=== PATIENT | male | born 1960 | race Caucasian/White ===

== ENCOUNTER 2017-07-29 12:07 | Emergency (ER) | payer MEDICARE, OTHER ==
[~2017-07-29] VITALS: Ht 170.2 cm; Wt 132.0 kg
[~2017-07-29 12:07] MED LIST: ALPRAZOLAM0.5 MG PO; AMBIEN10 MG PO; AMLODIPINE BESY10 MG PO; B COMPLEX1 EACH PO; CLONIDINE HCL0.1 MG PO; CLONIDINE HCL0.2 MG PO; CYMBALTA60 MG PO; FISH OIL500 MG; FLONASE2 SPRAY NS; GABAPENTIN600 MG PO; GLUCOPHAGE1000 MG PO; HUMALOG100 UNIT/1 SUB-Q; HYDROCODON-ACE1 EAC8 PO; HYZAAR 100-251 EACH PO; IRON325 M1 PO; LABETALOL HCL100 MG PO; LANTUS100 UNIT/1 SUB-Q; LANTUS100 UNITS/ SUB-Q; LEVOTHYROXINE0.5 GM MISC; LIPITOR80 MG GT; MOBIC7.5 MG PO; NAPROXEN375 MG PO; NICAZEL TABLET1 EACH PO; NITRO-TIME9 MG PO; NITROSTAT0.4 MG SL; NORCO 5-325 TA1 EACH PO; NOVOLIN R100 UNIT/1 INJ; NOVOLOG FL100 UNIT/1; PROVENTIL HFA6.7 GM INH; RANITIDINE HCL150 MG PO; ST. JOSEPH ASPI81 M1 PO; VITAMIN; VITAMIN B125000 MCG PO; VITAMIN D1000 UNI1 PO
[2017-07-29] MEDS ORDERED: CLONIDINE HCL0.2 MG PO (12:22)
== END 2017-07-29 13:00 | disposition home or self-care (01) ==
LOC: ED 12:07
DX: S63.502A Unspecified sprain of left wrist, initial encounter (principal); I11.0 Hypertensive heart disease with heart failure; I50.9 Heart failure, unspecified; E11.40 Type 2 diabetes mellitus with diabetic neuropathy, unspecified; Z79.82 Long term (current) use of aspirin; Z79.899 Other long term (current) drug therapy; Z98.890 Other specified postprocedural states; Z79.4 Long term (current) use of insulin; Z88.8 Allergy status to other drugs, medicaments and biological substances; W18.30XA Fall on same level, unspecified, initial encounter
CPT/HCPCS: 73110; 99283

== ENCOUNTER 2017-11-14 05:55 | Inpatient (IN) | payer MEDICARE, OTHER ==
[~2017-11-14] VITALS: Ht 170.2 cm; Wt 134.3 kg
--- OUTSIDE RECORDS SUMMARY | ~2017-11-14 | XMS | Clinical Summary ---
Demographics + + + | Address | [address] | | | [place] [address] | + + + | Home Phone | | + + + | Preferred Language | Unknown | + + + | Marital Status | | + + + | Bahai Affiliation | Unknown | + + + | Race | White | + + + | Ethnic Group | Not or | + + + Author + + + | Author | [facility] | + + + | Organization | [facility] | + + + | Address | Unknown | + + + | Phone | Unavailable | + + + Support + + +---------+ + | Name | Relationship | Address | Phone | + + +---------+ + | IRA PATTERSON | ECON | Unknown | | + + +---------+ + Care Team Providers + +------+ + | Care Peanut Blancher Name | Role | Phone | + +------+ + | Aditya Avila MD | PP | | + +------+ + Source Comments STACY is fully live on both [facility] Amb[facility] and [facility] InPatient.[facility] Allergies Not on File Current Medications Not on file Active Problems Not on file Social History + +-------+ +--------+------+ | Tobacco Use | Types | Packs/Day | Years | Date | | | | | Used | | + +-------+ +--------+------+ | Never Assessed | | | | | + +-------+ +--------+------+ + + + | Sex Assigned at | Date Recorded | | | | + + + | Not on file | | + + + Plan of Treatment + + + + + | Health Maintenance | Due Date | Last Done | Comments | + + + + + | INFLUENZA VACCINE | | | | | (FLU SHOT) | 7 | | | + + + + + Results Not on filefrom Last 3 Months"
--- OUTSIDE RECORDS SUMMARY | ~2017-11-14 | XMS | Clinical Summary ---
Demographics + + + | Address | [address] | | | [place] [address] | + + + | Home Phone | | + + + | Preferred Language | Unknown | + + + | Marital Status | | + + + | Sabianism Affiliation | Unknown | + + + [...] Team Providers + +------+ + | Care Fiberglass Container Winding Operator Name | Role | Phone | + +------+ + | Aditya Avila MD | PP | | + +------+ + Source Comments STACY is fully live on both [facility] Ambulatory and [facility] InPatient.[facility] Allergies Not on File Current Medications Not [...]
[~2017-11-14 05:55] MED LIST changes: +FARXIGA10 MG PO; +FISH OIL 1,0001 EAC6 PO; -FISH OIL500 MG; +FLONASE ALLERG9.9 ML NAS; -FLONASE2 SPRAY NS; +HUMALOG100 UNITS/ SUB-Q; +LEVOTHYROXINE25 MCG PO; -LIPITOR80 MG GT; +LIPITOR80 MG PO; +LISINOPRIL20 MG PO; +METOPROLOL SUC100 MG PO; +MULTI VITAMIN1 EACH PO; +NITROSTAT0.3 MG SL; +RANITIDINE HCL150 M1 PO; +TRULICITY0.75 MG/0. SUB-Q; +VITAMIN C1000 MG PO
--- NOTE | 2017-11-14 10:38 | OR ---
[facility] [address] [place], [place] [address] Signed DATE OF OPERATION: 11/14/2017 SURGEON: Princess Espitia MD PREOPERATIVE DIAGNOSIS: Degenerative joint disease, left knee. POSTOPERATIVE DIAGNOSIS: Degenerative joint disease, left knee. PROCEDURE PERFORMED: Left total knee arthroplasty with computer navigation. CORPORATE LEGAL ASSISTANT: Diane Man PA-C. Diane was present in critical positioning, retraction, and wound closure. BLOOD LOSS: Minimal. TOURNIQUET TIME: 56 minutes. ANESTHESIA: Spinal. IMPLANTS: Flaca size 4 Triathlon, 11 mm insert, and 32 mm patella. BRIEF HISTORY: Don is a 57-year-old male with progressive worsening of arthritis. We treated him over the years with injections, anti-inflammatories, bracing, and arthroscopy without substantial relief. Risks and benefits of operative treatment were discussed with him and he elected to proceed. DESCRIPTION OF PROCEDURE: Once consent was obtained, he was taken operating room. After adequate anesthesia, was placed on operating table. All downside pressure points well padded. The left leg was placed in well-padded proximal thigh tourniquet placed on hip bump. Leg was then Electronically Signed By: PRINCESS ESPITIA MD 11/14/17 1038 PATIENT NAME: DON PATTERSON OPERATIVE REPORT DATE OF : 58 REPORT #: [id number] PHYSICIAN: PRINCESS ESPITIA MD PCP: BONNIE HANNA REPORT IS CONFIDENTIAL AND NOT TO BE RELEASED WITHOUT AUTHORIZATION [facility] [address] [facility] [place], [place] [address] Signed prepped and draped in a standard sterile fashion. Leg was exsanguinated using Esmarch bandage. Tourniquet inflated to 250 mmHg. Standard anterior approach through curved incision was taken through skin subcutaneous tissue. Median parapatellar arthrotomy was performed. The infrapatellar fat pad was excised and the MCL was elevated to sleeve around the posteromedial corner. The anterior horns of menisci were transected and ACL was transected. PCL was found to be intact. The knee was flexed and the navigation guide was pinned to the distal femur and the femur was registered with the computer. The distal femoral cut was then made in neutral alignment. The distal femur was then sized to a 4 and the four AP cutting block was pinned in line with epicondylar axis. The anterior, posterior, chamfer cuts were made. The osteophytes were removed. The attention was then turned to the proximal tibia. The navigation guide was pinned to the proximal tibia and the tibia was registered with the computer. The cutting block was then pinned in neutral alignment and the cut was made with care taken to protect the patellar tendon and MCL. The bone was removed as were any meniscal remnants. Posterior release performed off the femur. Posterior osteophytes removed. The flexion-extension gaps were sized and be symmetric at 11 mm. The trials were then positioned and the knee was taken through range of motion and found to be stable from 0 to 130 degrees of flexion. The patella was cut, sized, and drilled for a 32 mm patella. The tibia was finished using the keel punch in the femur since using the drill holes for the pegs. The trials were removed. The bone was pulse lavaged, packed with dry Ray-Yumiko. The cement was mixed and reached proper consistency, displaced all implants on bone surfaces. Tibia was impacted in position first followed by the femur and all excess cement was removed. The polyethylene was snapped into position. The knee was extended and nicely loaded. The patella was clamped and any remaining cement was removed. The cement was allowed to harden. Once it hardened sufficiently, the knee was flexed. The was removed using osteotomes. The knee was pulse lavaged at intervals throughout the procedure. A total of 3 L antibiotic irrigation was used. The periarticular soft tissues were injected with ropivacaine and Toradol mixture. The arthrotomy was closed using #2 Stratafix, 0 Stratafix for subcutaneous tissue and valente for the skin. Wound was dressed with Mepilex Ag dressing, ABD, and Michael wrap. He tolerated the procedure well. All sponge, needle, and instrument counts were correct. Princess Espitia MD BA/MODL /[id number] Electronically Signed By: PRINCESS ESPITIA MD 11/14/17 1038 PATIENT NAME: DON PATTERSON OPERATIVE REPORT DATE OF : 58 REPORT #: [id number] PHYSICIAN: PRINCESS ESPITIA MD PCP: BONNIE HANNA REPORT IS CONFIDENTIAL AND NOT TO BE RELEASED WITHOUT AUTHORIZATION [address] [address] Signed Copies: ~ Electronically Signed By: PRINCESS ESPITIA MD 11/14/17 1038 PATIENT NAME: DON PATTERSON DOUG OPERATIVE REPORT DATE OF : 58 REPORT #: [id number] PHYSICIAN: PRINCESS ESPITIA MD PCP: BONNIE HANNA REPORT IS CONFIDENTIAL AND NOT TO BE RELEASED WITHOUT AUTHORIZATION
[2017-11-14] MEDS ORDERED: METOPROLOL TAR100 MG PO (16:18)
[2017-11-14] MEDS ORDERED: HYDROCHLOROTHIA25 MG PO (16:19)
[2017-11-14] MEDS ORDERED: PIOGLITAZONE HC15 MG PO (16:22)
[2017-11-14] MEDS ORDERED: TRAZODONE HCL50 MG PO (16:24)
[2017-11-14] MEDS ORDERED: HUMALOG100 UNIT/1 SUB-Q (16:53)
[2017-11-14] MEDS ORDERED: MELATONIN10 M2 PO (16:55)
[2017-11-14] MEDS ORDERED: FARXIGA10 MG PO (17:00)
[2017-11-18] MEDS ORDERED: OXYCODONE HCL5 MG PO (07:32)
[2017-11-18] MEDS ORDERED: XARELTO10 MG PO (07:32)
[2017-11-18] MEDS ORDERED: MIRALAX17 GM PO (07:33)
--- NOTE | 2017-11-21 08:31 | DS ---
[facility] [address] [place], [place] [address] Signed ADMISSION DATE: 11/14/2017 DISCHARGE DATE: 11/18/2017 ADMISSION DIAGNOSIS: Degenerative joint disease, left knee. DISCHARGE DIAGNOSIS: Degenerative joint disease, left knee. PROCEDURE PERFORMED: Left total knee arthroplasty. BRIEF HISTORY: Don is a 57-year-old gentleman with severe pain and worsening arthritis in his knee. He had undergone significant nonoperative treatment without substantial relief. He was finally cleared for operative intervention. Once clearance was obtained, he was taken to the operating room and underwent the above-named procedure. He was taken to the recovery room and subsequently to the orthopedic floor. Initially, pain control was good. However, he had worsening pain after the block wore off. His gabapentin was increased to 900 p.o. t.i.d. and his oxycodone was increased to 5-15 mg q.3 hours p.o. p.r.n. This managed his pain quite well. He did have initially some significant renal insufficiency and the anti-inflammatories were stopped. He was fluid hydrated and his kidney function recovered quite nicely. He was seen by Physical Therapy and able to ambulate down the hallway and up and down stairs by the day of discharge. His pain control was finally adequate by today and he will be discharged home on his current medications. He will be seen by outpatient physical therapy. He will follow up with me in 7 to 10 days or sooner should he have problems. Princess Espitia MD BA/ROBBIN /[id number] Copies: Electronically Signed By: PRINCESS ESPITIA MD 11/21/17 0831 PATIENT NAME: DON PATTERSON DISCHARGE SUMMARY DATE OF : 58 REPORT #: [id number] PHYSICIAN: PRINCESS ESPITIA MD PCP: BONNIE HANNA REPORT IS CONFIDENTIAL AND NOT TO BE RELEASED WITHOUT AUTHORIZATION [address] [place], [place] [address] Signed ~ Electronically Signed By: PRINCESS ESPITIA MD 11/21/17 0831 PATIENT NAME: DON PATTERSON DISCHARGE SUMMARY DATE OF : 58 REPORT #: [id number] PHYSICIAN: PRINCESS ESPITIA MD PCP: BONNIE HANNA REPORT IS CONFIDENTIAL AND NOT TO BE RELEASED WITHOUT AUTHORIZATION
== END 2017-11-18 10:45 | disposition home or self-care (01) | DRG 470 ==
LOC: DS 05:55 → MS 09:05 → DS 09:05 → MS 11-18 10:45
PROVIDERS: ADMIT Specialist
PROC: 3E0T3BZ Introduction of Anesthetic Agent into Peripheral Nerves and Plexi, Percutaneous Approach (ICD-10-PCS; 2017-11-14)
PROC: 3E0T33Z Introduction of Anti-inflammatory into Peripheral Nerves and Plexi, Percutaneous Approach (ICD-10-PCS; 2017-11-14)
PROC: 0SRD0J9 Replacement of Left Knee Joint with Synthetic Substitute, Cemented, Open Approach (ICD-10-PCS; principal; 2017-11-14 06:45)
DX: M17.12 Unilateral primary osteoarthritis, left knee (principal); N17.9 Acute kidney failure, unspecified; N18.2 Chronic kidney disease, stage 2 (mild); G89.18 Other acute postprocedural pain; I12.9 Hypertensive chronic kidney disease with stage 1 through stage 4 chronic kidney disease, or unspecified chronic kidney disease; E11.9 Type 2 diabetes mellitus without complications; G47.33 Obstructive sleep apnea (adult) (pediatric); E78.5 Hyperlipidemia, unspecified; E03.9 Hypothyroidism, unspecified; Z79.4 Long term (current) use of insulin; Z79.84 Long term (current) use of oral hypoglycemic drugs; Z79.82 Long term (current) use of aspirin; Z79.899 Other long term (current) drug therapy
CPT/HCPCS: 01402; 36415; 51798; 62322; 64450; 76942; 80048; 82570; 84300; 84540; 85025; 94660; 97110; 97116; 97161; 97165; C1713; C1776; G8978; G8979; G8987; G8988; G8989; J0690; J1170; J1200; J1885; J2250; J2274; J2704; J2795; J3010; J7030; J7120

== ENCOUNTER 2018-05-01 12:13 | Emergency (ER) | payer MEDICARE, OTHER ==
[~2018-05-01] VITALS: Ht 170.2 cm; Wt 126.5 kg
[~2018-05-01 12:13] MED LIST changes: +HYDROCHLOROTHIA25 MG PO; +MELATONIN10 M2 PO; +METOPROLOL TAR100 MG PO; +MIRALAX17 GM PO; +OXYCODONE HCL5 MG PO; +PIOGLITAZONE HC15 MG PO; +TRAZODONE HCL50 MG PO; +XARELTO10 MG PO
== END 2018-05-01 13:12 | disposition home or self-care (01) ==
LOC: ED 12:13
DX: S09.90XA Unspecified injury of head, initial encounter (principal); S01.111A Laceration without foreign body of right eyelid and periocular area, initial encounter; I11.0 Hypertensive heart disease with heart failure; I50.9 Heart failure, unspecified; E11.40 Type 2 diabetes mellitus with diabetic neuropathy, unspecified; Z88.1 Allergy status to other antibiotic agents; Z23 Encounter for immunization; Z79.4 Long term (current) use of insulin; Z79.899 Other long term (current) drug therapy; X58.XXXA Exposure to other specified factors, initial encounter
CPT/HCPCS: 90471; 90715; 99282

== ENCOUNTER 2018-09-22 08:40 | Inpatient (IN) | payer MEDICARE, OTHER ==
[~2018-09-22] VITALS: Ht 170.2 cm; Wt 137.0 kg
[2018-09-26] MEDS ORDERED: NORCO 10-325 T1 EACH PO (15:15)
--- NOTE | 2018-09-26 15:47 | NUR ---
PATIENT HERE TODAY FOR PREADMISSION APPOINTMENT. HE IS SCHEDULED TO HAVE A RIGHT TOTAL KNEE REPLACEMENT ON 10/09/18. HE REPORTS HAVING A LEFT TOTAL KNEE REPLACEMENT A YEAR AGO. HE IS SCHEDULED TO ATTEND THE [facility] [place] ON 09/28/18. HE REPORTS STILL HAVING HIS WALKER, AND SHOWER BENCH. THEY HAVE THREE STEPS INTO THE HOME AND NO STEPS INSIDE THE HOME. HIS IRA WILL BE HERE TO TRANSPORT HIM HOME AND TO APPOINTMENT. HE WOULD LIKE PHYSICAL THERAPY SET UP WITH [facility]. THIS INFORMATION WILL BE SENT TO DR CLOUD OFFICE AND CASE MANAGEMENT FOR FURTHER FOLLOW UP.
[2018-10-08] MEDS ORDERED: HYDROCODON-ACE1 EAC8 PO (15:02)
[2018-10-08] MEDS ORDERED: TRULICITY0.75 MG/0. SUB-Q (15:13)
--- NOTE | 2018-10-09 10:46 | NUR ---
10/09/18 1046 Sheets,Gloria 1029 PT ARRIVED TO PACU ON RA, RESP EVEN AND UNLABORED. PT DROWSY, PT ABLE TO FOLLOW COMMANDS TO TAKE DEEP BREATHES. PT DENIES NAUSEA AND PAIN. 1031 O2 REMAINS 91% ON RA, PT PLACED ON 2L NC. 1045 PT VSS. AND AWAKE AND TALKING TO RN.
--- NOTE | 2018-10-09 11:25 | NUR ---
New admit to the floor. Pt had a spinal; reports sensation is returning to right knee region. Pt reports baseline numbness and tingling in lower ext d/t neuropathy. Pt reports pain is tolerable at this time, 3/10 right knee. Bulky dressing to right knee, ice intact over dressing. ON-Q device under bulky dressing, flashing green indicating "ok". Pt's vs are stable, pt on 2L nc, resp even and non labored. Dressing CDI at this time. Pt denies needs at this time. Pt tolerating clears well. Pt requesting to take a nap at this time. Call light within reach. Pt denies needs at this time. Resp are even and non labored, 02 sat level is 97% on 2L.
--- NOTE | 2018-10-09 12:30 | NUR ---
Pt resting in bed, resp even and non labored. 02 @2L per nc, 02 sat level 95%. Pt appears comfortable, eyes closed. Pedal pulse intact to right leg. Personal supplies and call light within reach. VS stable.
--- NOTE | 2018-10-09 13:39 | NUR ---
Pt sleeping, resp even and non labored. Oxygen @2L per nc, 02 sat level is 95%. Pt appears comfortable, no notable distress. cms intact, pedal pulse intact to right foot. Personal supplies and call light within reach. VS taken and are stable.
--- NOTE | 2018-10-09 13:53 | NUR ---
MET WITH PT AND SPOUSE AMBROSE. HE IS ALERT, ORIENTED AND SEEMS PREPARED. PT HAS HAD OTHER KNEE REPLACED RECENTLY AND IS VERY HAPPY WITH THE OUTCOME. PT REQUESTED PRAYER, WILL FOLLOW NEEDED
--- NOTE | 2018-10-09 14:33 | NUR ---
Pt awake, eating jello. Pt's resp even and non labored, 02 sat level 95% on 2l nc. Pt reports pain 3/10 right knee pain. Personal supplies and call light within reach.
--- NOTE | 2018-10-09 14:35 | NUR ---
PT has no voided. Bladder scanned pt; 407ml at this time. Will continue to monitor.
--- NOTE | 2018-10-09 15:51 | NUR ---
Pt awake, tolerating jello and water. Pt reports pain is tolerable. Spinal resolved, full sensation to lower ext returned to baseline. Pedal pulse intact. right knee, dressing cdi. ON-Q is intact, blinking "ok". Pt's resp even and non labored, 02 sat 95% on RA.
[2018-10-09] MEDS ORDERED: BASAGLAR K100 UNIT/1 SUB-Q (16:56)
[2018-10-09] MEDS ORDERED: NOVOLOG FL100 UNIT/1 SUB-Q (16:56)
--- NOTE | 2018-10-09 17:15 | NUR ---
Medications reconciled using pharmacy records and patient interview
--- NOTE | 2018-10-09 18:32 | NUR ---
Inserted 16fr de la cruz catheter using sterile technique. Instilled 9ml of sterile water into balloon. Pt tolerated well. Immediate return of 550ml of orange colored urine. Stat lock intact to left thight area. No needs at this time. Education provided to pt regarding de la cruz care.
--- NOTE | 2018-10-09 19:20 | NUR ---
RECEIVED REPORT FROM DAY SHIFT RN. PATIENT IS RESTING IN BED WATCHING TV. PATIENT DENIES ANY PAIN. CALL LIGHT IN REACH. NO NEEDS NOTED.
--- NOTE | 2018-10-09 21:45 | NUR ---
PATIENT ASSESMENT COMPLETED. PATIENT ASSISTED TO THE RESTROOM A 1PA W/FWW. PATIENT TOLERATES AMBUALTION WELL. PATIENT WAS NOT ABLE TO HAVE A BM. PATIENT IS BACK IN BED RESTING. PATIENT HAS SCDS, TEDHOSE, AND HEEL PROTECTORS IN BILAT LOW EXT. PATIENT HAS RANJITH IN PLACE, GREEN LIGHT NOTED. ON-Q PUMP IN PLACE. PATIENTS EVENING MEDICATIONS GIVEN PER ORDER. PATIENT RATES PAIN AT A 5/10. PATIENT GIVEN PRN PAIN MEDICATION PER ORDER. PATIENT DRESSING ON RIGHT KNEE IS C/D/I. PATIENT HAS HARRY IN PLACE, OUTPUT IS NOTED TO BE ORANGE. HARRY PLACED ON DAY SHIFT FOR RETENTION. PATIENT IS SL AND IV FLUSHES WELL. PATIENT HAS CRYO IN PLACE, ICE REFILLED. PATIENT IS AAOX3. RT IN ROOM SETTING UP CPAP PER ORDER. PATIENT EDUCATED TO CALL STAFF WHEN HE IS READY TO PLACE CPAP ON BEFORE SLEEP. NO FURTHER NEEDS NOTED. CALL LIGHT IN REACH.
--- NOTE | 2018-10-09 22:45 | NUR ---
PATIENT ASKED ABOUT A HOME MEDICATION THAT HE TAKES AT NIGHT. SPOKE WITH DR LOVE ABOUT CHANGING HIS MEDICATION FOR THE AM TO THE PM TO ALIGN WITH IS HOME SCHEDULE. DR LOVE GAVE PERMISSION TO SWITCH TIMES.
--- NOTE | 2018-10-09 23:00 | NUR ---
PATIENTS PAIN REEVALTED. PATIENT STATED THAT HIS PAIN IS A "2/10". PATIENT DENIES THE NEED FOR PAIN MEDICATION AT THIS TIME. NO NEEDS NOTED. CALL LIGHT IN REACH.
--- NOTE | 2018-10-10 01:00 | NUR ---
PATIENTS SCHEDULED MEDICATIONS GIVEN PER ORDER. PATIENT DENIES ANY PAIN. CPAP IN PLACE. VITALS TAKEN AND RECORDED. PAIENT DENIES ANY NEEDS. HARRY EMPTIED. CRYO HAS SUFFICIENT ICE. CALL LIGHT IN REACH.
--- NOTE | 2018-10-10 02:38 | NUR ---
PATIENT IS RESTING IN BED WITH EYES CLOSED. PATIENT CONTINUES TO WEAR CPAP. PATIENTS PULSE OX READINGS ARE WNL. CALL LIGHT IN REACH.
--- NOTE | 2018-10-10 04:45 | NUR ---
PATIENT IS RESTING IN BED WITH EYES CLOSED. PATIENT IS WEARING CPAP PER ORDER. PULSE OX READINGS ARE WNL. CALL LIGHT IN REACH.
--- NOTE | 2018-10-10 06:30 | NUR ---
PATIENTS MORNING MEDICATIONS GIVEN PER ORDER. PATIENTS VITALS TAKEN AND RECORDED. PATIENT RATES PAIN AT A 7/10. PATIENT GIVEN PRN PAIN MEDICATION PER ORDER. PATIENT HAS SCD. TEDHOSE NAD HEEL PROTECOTRS IN PLACE ON BILAT LOW EXT. PATIENT HAS DRYO IN PLACE. CRYO REFILLED WITH ICE. PATIENT HAS A SMALL AMOUNT OF NEW DRAINGE ON RANJITH DRESSING. RANJITH LIGHT FLASHING GREEN. ON-Q IN PLACE. PATIENTS FOLET EMPTIED. PATIENT DENIES ANY FUTHER NEEDS. PATIENT HAS CPAP ON WHEN ROOM WAS ENTERED. PATIENT DOES NOT WISH TO HAVE CPAP BACK IN. NEW DRAINAGE ON RANJITH APURVA Lorenz NOTED
--- NOTE | 2018-10-10 06:35 | NUR ---
PATIENT RESTED WELL THROUGHOUT THE SHIFT. PATIENT IS ON AN ADA DIET, TOLERATING IT WELL. NO NAUSEA NOTED. PATIENT IS SL IV FLUSHES WELL. PATIENT WORE CPAP THROUGHOUT THE NIGHT WHILE ASLEEP. PATIENT HAS SCDS, HEEL PROTECT, AND TEDHOSE ON BILAT LOW EXT. PATIENT HAS CRYO IN PLACE. PATIENT HAS RANJITH IN PLACE-GREEN LIGHT NOTED. PATIENT HAS ON-Q PUMP IN PLACE. PATIENT RECEIVED PRN PAIN MEDICATION X2. PATIENT IS AAOX3 AND CALLS APPROPRIATLEY. PATIENT HAS A SMALL AMOUNT OF NEW DRAINAGE NOTED.
--- NOTE | 2018-10-10 06:54 | NUR ---
INSULIN GIVEN PER ORDER. PATIENTS HARRY DC'D PER ORDER. PATIENT DENIES ANY NEEDS. CALL LIGHT IN REACH.
--- NOTE | 2018-10-10 07:31 | NUR ---
Pt sleeping at this time, resp even and non labored. Personal supplies within reach of pt. No needs at this time.
--- NOTE | 2018-10-10 12:09 | NUR ---
Oxycodone 5mg po and Felxaril admin for reports or 7/10 right knee pain with muscle spasms. Attempted to make contact with Dr. Espitia regarding pain control. Left message with his office to call us back, as he was busy with a pt per his office staff.
--- NOTE | 2018-10-10 12:19 | NUR ---
Pt able to void 450ml urine.
--- NOTE | 2018-10-10 12:45 | NUR ---
PT RESTING IN BED WITH FAMILY AT . AMBROSE IS ASLEEP ON COUCH. PT ADMITTED SOME PAIN-FELT GOOD ABOUT P.T. THIS AM, WILL HAVE ANOTHER THIS AFTERNOON. THANKED ME FOR COMING BY, WILL FOLLOW NEEDED
--- NOTE | 2018-10-10 13:09 | NUR ---
CALLED DR CLOUD REGARDING PT'S PAIN. HE CHANGED OXY TO 5-15MG Q3 AND GABAPENTIN TO 900MG TID. PUT ORDER IN COMPUTER
--- NOTE | 2018-10-10 14:00 | NUR ---
PT IS EXPECTING TO GO TO HIS EX WIFES HOME [place], HE WILL STAY WITH HER UNTIL HE IS GOOD TO RETURN HOME, HE IS PLANNING ON OP PT AT [facility] OP PT, HAS A RIDE TO THERAPY. PT STATES HE ALREADY HAS A FWW.
--- NOTE | 2018-10-10 14:13 | NUR ---
ADMIN OXYCODONE 10MG PO FOR REPORTS OF 7/10 RIGHT KNEE PAIN.
--- NOTE | 2018-10-10 18:37 | NUR ---
PT A&OX3. STANDBY ASSIST WITH WALKER. OXYCODONE 5-15MG PO. SL IV. ICE TO RIGHT KNEE. UP WITH PT DOING WELL.
--- NOTE | 2018-10-10 19:25 | NUR ---
RECEIVED REPORT FROM DAY SHIFT RN. PATIENT IS RESTING IN BED WATCHING TV. PATIENT DENIES ANY NEEDS AT THIS TIME. PATIENT WOULD LIKE PAIN MEDICATION WITH EVENING MEDICATIONS. CALL LIGHT IN REACH.
--- NOTE | 2018-10-10 19:30 | NUR ---
CHARGE ROUND DONE WITH DAY SHIFT CHARGE AND RONDA RN. PATIENT RESTING IN BED. VISUALIZE DRESSING WITH SMALL AMOUNT OF DRAINAGE UNDER RANJITH. PATIENT DENIES NEEDS AT THIS TIME. CALL LIGHT IN REACH.
--- NOTE | 2018-10-10 21:10 | NUR ---
PATIENT ASSEMENT COMPLETED. PATIENT IS RESTING IN BED WATCHING TV. PATIENTS EVENING MEDICATIONS GIVEN PER ORDER. PATIENT RATES PAIN AT A 7/10. PATIENT GIVEN PRN PAIN MEDICATION PER ORDER. PATIENT HAS SCDS, TEDHOSE, AND HEEL PROTECTORS ON BILAT LOW EXT. PATIENT HAS CRYO IN PLACE. PATIENT PLACED ON PULSE OX BY RT FOR WHEN HE IS SLEEPING. PATIENT HAS RANJITH IN PLACE, GREEN LIGHT FLASHING. PATIENT HAS ON-Q PUMP IN PLACE. PATIENT IS SL AND IV FLUSHES WELL. PATIENTS BLOOD SUGAR CHECKED PER ORDER AND FOUND TO BE 301. SPOKE WITH DR LOVE ABOUT INCREASED BS. NEW SLIDING SCALE ORDER PLACED. PATIENT DENIES ANY FURTHER NEEDS AT THIS TIME. CALL LIGHT IN REACH. PATIENT IS AAOX3.
--- NOTE | 2018-10-10 21:32 | NUR ---
PHARMACY VERIFIED SS INSULIN ORDER. PATIENT GIVEN SS INSULIN PER ORDER. PATIENT RATES PAIN AT A 5/10. PATIENT STATED "THE PAIN MEDICATION IS HELPING". PATIENT DENIES ANY ADDITIONAL PAIN INTERVENTIONS AT THIS TIME. SALES OPERATIONS COORDINATOR REFILLED CRYO. NO NEEDS NOTED. CALL LIGHT IN REACH.
--- NOTE | 2018-10-10 22:30 | NUR ---
PATIENT PLACED ON CPAP PER RT. PATIENT RATES PAIN AT A 3/10. PATIENT STATED "IT FEELS GOOD NOW". PATIENT DENIES ANY NEEDS. CALL LIGHT IN REACH.
--- NOTE | 2018-10-11 00:59 | NUR ---
PATIENT ASSISTED TO THE RESTROOM A SBA W/FWW. PATIENT WAS ABLE TO VOID. PATIENT IS BACK IN BED RESTING. PATIENT RATES PAIN AT A 4/10. PATIENT GIVEN PRN PAIN MEDICATION PER REQUEST AND ORDER. PATIENT ALSO COMPLAINS OF MUSCLE SPASMS. PATIENT GIVEN PRN MEDICATION FOR SPASMS. PATIENT HAS SCDS, TEDHOSE, CRYO AND HEEL PROTECTORS IN PLACE. PATIENTS CRYO REFILLED WITH ICE. PATIENT PLACED CPAP BACK ON. PATIENT DENIES ANY FURTHER NEEDS. CALL LIGHT IN REACH.
--- NOTE | 2018-10-11 02:00 | NUR ---
ATTEMPTED TO REEVALUAT PATIENTS PAIN. PATIENT IS RESTING IN BED WITH EYES CLOSED. CPAP IN USE. PULSE OX READINGS ARE WNL. CALL LIGHT IN REACH.
--- NOTE | 2018-10-11 04:30 | NUR ---
PATIENT IS BACK IN BED RESTING AFTER BEING ASSISTED TO THE RESTRROM BY THE STONE DERRICKMAN AND RIGGER. PATIENT REQUESTED PAIN MEDICATION FOR 8/10 PAIN DURING AMBULATION AND 5/10 PAIN AT REST. PATIENT GIVEN PRN PAIN MEDICATION PER ORDER. PATIENT IS RESTING IN BED. PATIENT PLACED CPAP BACK ON. PATIENT DENIES ANY NEEDS. CALL LIGHT IN REACH.
--- NOTE | 2018-10-11 04:55 | NUR ---
PATIENT RESTED WELL THROUHGOUT THE SHIFT. PATIENT IS ON AN ADA DIET, TOLERATING WELL. NO NAUSEA NOTED. PATIENT IS A SBA W/FWW. PATEINT IS WORKING WITH PT/OT. PATIENT WORE CPAP WHILE ASLEEP. CPOX IN PLACE WHILE ASLEEP. PATIENT HAS HEEL PROTECTORS, SCDS, AND TEDHOSE ON BILAT LOW EXT. PATEINT HAS CRYO IN PLACE ON RIGHT KNEE. PATIENT HAS RANJITH DRESSING IN PLACE AND GREEN LIGHT FLASHING. ON-Q PUMP IN PLACE AND INFUSING PER ORDER. PATIENT IS SL AND IV FLUSHES WELL. PATIENT HAS A SMALL AMOUNT OF DRAINAGE NOTED ON DRESSING. PATIENT RECEIVED PRN PAIN MEDICATION EVERY TIME AVAILABLE. PATIENT HAD AN INCREASE IN BS, SS ADDED PER DR LOVE. PATIENT IS AAOX3 AND USES CALL LIGHT APPROPRIATLEY. SCOPE PATCHED NOTED BEHIND RIGHT EAR.
--- NOTE | 2018-10-11 06:21 | NUR ---
PATIENTS MORNING MEDICATIONS GIVEN PER ORDER. PATIENT RATED PAIN AT A 4/10. PATIENT DENIES THE NEED FOR PAIN MEDICATIO AT THIS TIME. PATIENT HAS NO NEW DRAINAGE NOTED. PATIENTS CRYO REFILLED WITH ICE. NO NEEDS NOTED. CALL LIGHT IN REACH. VITALS TAKEN AND RECORDED.
--- NOTE | 2018-10-11 08:00 | NUR ---
PATIENT REPORT RECEIVED FROM ASH GAFFNEY, HE IS RESTING WITH A SAKINA WRAP AND RANJITH DRESSING TO RIGHT LEG. CMS IS INTACT. PATIENT IS ALERT AND ORIENTED AND STATES THAT PAIN IS CURRENTLY AT A 7/10. 15MG OF OXYCODONE GIVEN PO
--- NOTE | 2018-10-11 09:25 | NUR ---
PATIENT UP WALKING WITH PHYSICAL THERAPY, PAIN WHEN AMBULATING IS AT A 7/10.
--- NOTE | 2018-10-11 10:04 | NUR ---
PATIENT IN BED WATCHING TV. IN ROOM. VITAL SIGNS AND I&O DONE. ICE GIVEN. CALL LIGHT WITHIN REACH. NO OTHER NEEDS AT THIS TIME
--- NOTE | 2018-10-11 10:41 | NUR ---
patient requesting pain medication at this time, will give oxycodone po at 1100.
--- NOTE | 2018-10-11 11:23 | NUR ---
patient given 15mg of oxycodone to cover right knee pain. he remains alert and oriented and dressing to right knee is cdi, cms intact. patient glucose 159 at this time, 1 unit of insulin given sq
--- NOTE | 2018-10-11 13:45 | NUR ---
PATIENT RESTING IN BED. VITAL SIGNS AND I&O DONE. PATIENT ASKS FOR PAIN MEDICATION. RN NOTIFIED. CALL LIGHT WITHIN REACH. NO OTHER NEEDS AT THIS TIME
--- NOTE | 2018-10-11 14:09 | NUR ---
PATIENT C/O 03/07 RIGHT KNEE PAIN, PATIENT GIVEN SCHEDULED MEDICATION TO COVER HIS PAIN AT THIS TIME AND WILL FOLLOW UP IN 20 MINUTES WITH OXYCODONE
--- NOTE | 2018-10-11 14:49 | NUR ---
patient's pain currently at a 7/10 in the right knee, patient given 15mg of oxycodone po now.
--- NOTE | 2018-10-11 16:34 | NUR ---
PATIENT IS WALKING IN HALLWAY ONE LAP WITH PHYSICAL THERAPIST. PATIENT BACKS TO CHAIR. PATIENT USES BATHROOM. PATIENT BACKS TO CHAIR. PATIENT REFUSED SHOWER TODAY. LINENS CHANGED AND CRYO FILLED. CALL LIGHT WITHIN REACH. NO OTHER NEEDS AT THIS TIME
--- NOTE | 2018-10-11 16:34 | NUR ---
PATIENT WAS UP AMULATING WITH PHYSICAL THERAPY, PAIN TOLERABLE AT A 5/10 IN THE RIGHT KNEE. GLUCOSE CHECK AT THIS TIME 96, NO INSULIN REQUIRED.
--- NOTE | 2018-10-11 17:15 | NUR ---
PATIENT SITTING UP IN BED TAKING DINNER. VITAL SIGNS AND I&O DONE. CALL LIGHT WITHIN REACH. NO OTHER NEEDS AT THIS TIME
--- NOTE | 2018-10-11 17:36 | NUR ---
THIS PATIENT HAD A GOOD DAY, PAIN WAS WELL CONTROLLED THIS AFTERNOON WHILE HE WAS UP AMBULATING WITH PHYSICAL THERAPY. HE CONTINUES TO DO ALL HIS EXERCISES AND STAIRS WITH TOLERABLE PAIN. HIS DRESSING TO THE RIGHT LEG IS CDI WITH A RANJITH DRESSING AND AN SAKINA WRAP. HE REMAINS ALERT AND ORIENTED AND PLANS TO D/C TO HOME TOMMORROW AFTER PHYSICAL THERAPY.
--- NOTE | 2018-10-11 19:05 | NUR ---
SHIFT REPORT RECEIVED FROM DAYSHIFT GULSHAN OLIVA. PT AWAKE, RR EVEN AND UNLABORED. PT VERBALIZES 6/10 PAIN, PAIN MEDICATION ADMINISTERED BY DAYSHIFT GUSLHAN OLIVA. CYRO ICE CUFF TO RIGHT KNEE. RANJITH DRESSING NOTED, GREEN OKAY LIGHT FLASHING. PT DENIES ADDITIONAL NEEDS, CALL LIGHT IN REACH.
--- NOTE | 2018-10-11 19:25 | NUR ---
CHARGE NURSE REPORT RECEIVED FROM RAD BOWEN IN BED, WITH FAMILY IN ROOM. NO NEEDS AT THIS TIME.
--- NOTE | 2018-10-11 21:45 | NUR ---
ASSESSMENT COMPLETE. SCHEDULED MEDICATIONS GIVEN (SEE EMAR). VSS. SCHEDULED ACCUCHECK RESULT 98, CHIEF RADIOLOGY RONDA AWARE. SUGGESTED BY CHIEF RADIOLOGY TO GIVE PT SNACK, CHOCOLATE PUDDING PROVIDED. RANJITH DRESSING TO RIGHT KNEE NOTED WITH GREEN FLASHING LIGHT, MODERATE SANGUINEOUS DRAINAGE NOTED ON RANJITH DRESSING, APPEARS DULL IN COLOR AND OLD. SAKINA WRAP CDI. CYRO CUFF IN PLACE. CMS INTACT. PT UP TO VOID, SBA W/ FWW. PT BACK IN BED, DENIES ADDITIONAL NEEDS. BILATERAL SCD'S. HEEL PROTECTORS, AND EDNA HOSE IN PLACE. CALL LIGHT IN REACH.
--- NOTE | 2018-10-11 23:23 | NUR ---
PT REPORTS 6-7/10 PAIN. 15 MG PRN OXYCODONE GIVEN PER PT REQUEST. NO FURTHER NEEDS, CALL LIGHT IN REACH. SCD'S AND HEEL PROTECTORS IN PLACE.
--- NOTE | 2018-10-12 00:09 | NUR ---
ROUNDING ON PT. RT CALLED FOR CPAP/BIPAP MACHINE PT IS READY TO GO TO SLEEP. NO ADDITONAL NEEDS. CALL LIGHT IN REACH.
--- NOTE | 2018-10-12 00:20 | NUR ---
patients cryo was only water so i filled it with ice. patient was sleeping peacefully.
--- NOTE | 2018-10-12 03:49 | NUR ---
PT REPORTS 6/10 PAIN. PT REPORTS THAT PREVIOUS 15 MG OXYCODONE BROUGHT PAIN DOWN TO A 4/10. BIPAP/CPAP MACHINE ON STANDBY AT THIS TIME PER PT REQUEST. PT STATES, "I'M GONNA BE UP FOR AWHILE, I DON'T SLEEP A LOT AT NIGHT. ASSESSMENT COMPLETE. IV SITE FLUSHED, LEAKING AND INFILTRATION NOTED. COURTROOM DEPUTY OR CALENDAR CLERK RONDA AWARE. THIS RN REMOVED IV SITE, TIP INTACT. PT PLANNED FOR DISCHARGE TODAY, WILL CALL MD BEFORE SHIFT CHANGE AND ASK WHETHER MD WOULD LIKE NEW IV PLACED. BILATERAL SCD'S, EDNA HOSE, AND HEEL PROTECTORS NOTED. RANJITH DRESSING INTACT, NO NEW DRAINAGE NOTED, GREEN OKAY LIGHT FLASHING. PT DENIES FURTHER NEDS. RT CALLED TO POSITION BIPAP/CPAP MACHINE MASK. CALL LIGHT IN REACH.
--- NOTE | 2018-10-12 05:47 | NUR ---
ASSISTED PT TO RESTROOM AND BACK TO BED. HE DENIES FURTHER NEEDS. CALL LIGHT IS CLOSE.
--- NOTE | 2018-10-12 06:35 | NUR ---
PT A/OX4, VSS. PAIN WELL CONTROLLED WITH SCHEDULED AND RN PAIN MEDICATION. NO NEW DRAINAGE NOTED TO PICCO DRESSING, SAKINA WRAP CDI. GREEN OKAY LIGHT FLASHING. CMS INTACT. BILATERAL SCD'S, EDNA HOSE, AND HEEL PROTECTORS NOTED. PT ON ADA DIET, INSULIN SS, AND LANTUS IN EMAR. PT SBA W/ AMBULATION.
--- NOTE | 2018-10-12 07:35 | NUR ---
SPOKE TO DR CLOUD REGARDING PT'S IV SITE. PT'S IV SITE BEGAN TO LEAK, PT SL AT THIS TIME. VERBAL ORDER READ BACK OKAY TO LEAVE IV SITE OUT.
[2018-10-12] MEDS ORDERED: OXYCODONE HCL5 MG PO (07:47)
[2018-10-12] MEDS ORDERED: HEALTHYLAX17 GM PO (07:48)
[2018-10-12] MEDS ORDERED: SENNA LAX8.6 MG PO (07:48)
[2018-10-12] MEDS ORDERED: MAPAP500 M1 PO (07:48)
[2018-10-12] MEDS ORDERED: ASPIRIN EC325 MG PO (07:50)
--- NOTE | 2018-10-12 07:50 | NUR ---
report received from Lucinda GAFFNEY, patient is awake and oriented, Doctor Omkar in to see the patient at this time. dressing to right knee is cdi with a edita dressing and rajesh wrap, old drainage noted and cms intact.
--- NOTE | 2018-10-12 08:36 | NUR ---
PATIENT UP TO BATHROOM AND BACK TO BED, 1 PA FWW. CALL LIGHT IN REACH. NO FURTHER NEEDS AT THIS TIME.
--- NOTE | 2018-10-12 08:59 | OR ---
[facility] [address], [place] [address] Signed DATE OF OPERATION: 10/09/2018 SURGEON: Princess Espitia MD PREOPERATIVE DIAGNOSIS: Degenerative joint disease, right knee. POSTOPERATIVE DIAGNOSIS: Degenerative joint disease, right knee. PROCEDURE PERFORMED: Right total knee arthroplasty with computer navigation. IT TEACHER: ANNA MARIE Serna. Diane was present and critical for positioning, retraction, wound closure, and dressing. ANESTHESIA: Spinal. BLOOD LOSS: 100 mL. IMPLANTS: [place] Triathlon size 4, 11 mm insert and 32 mm patella. BRIEF HISTORY: Don is a 58-year-old gentleman with progressive worsening osteoarthritis in the knee. He had undergone left total knee with good success. He did have an arthroscopy recently by me, which showed grade 4 chondromalacia. Risks and benefits of operative treatment were discussed with him and he elected to proceed. DESCRIPTION OF PROCEDURE: Once consent was obtained, he was taken to the operating room. After adequate anesthesia, he was placed on operating room table. All downside pressure points well padded and a hip bump was placed. The leg was placed in well-padded proximal thigh tourniquet and prepped and draped in a standard sterile fashion. A standard anterior approach through a 6 inch incision was carried through skin and subcutaneous tissue. Median parapatellar arthrotomy was performed. The infrapatellar fat pad was excised and the MCL was partially elevated. The medial capsule was elevated all the way around the Electronically Signed By: PRINCESS ESPITIA MD 10/09/18 1406 Electronically Signed By: PRINCESS ESPITIA MD 10/13/18 1226 PATIENT NAME: DON PATTERSON OPERATIVE REPORT DATE OF : 58 REPORT #: [id number] PHYSICIAN: PRINCESS ESPITIA MD PCP: BONNIE HANNA REPORT IS CONFIDENTIAL AND NOT TO BE RELEASED WITHOUT AUTHORIZATION [facility] [address], [place] [address] Signed posterior medial corner. Anterior horns of the menisci were transected as was the ACL. The knee was flexed and navigation guide was pinned to the distal femur and the femur was registered with the computer. The distal femoral cutting guide was then set to neutral alignment and was pinned. The distal femoral cut was made. The distal femur was sized to 4, which matched his opposite side. The distal femoral cut was made and the bone was removed. The AP cutting block was then pinned in 3 degrees of external rotation, which matched the epicondylar axis and the anterior, posterior, and chamfer cuts were made. All osteophytes were removed along with all bone fragments. Attention was then turned to proximal tibia. The proximal tibia was cleared of menisci and the navigation guide was pinned. The tibia was registered with the computer. The cutting block was then pinned in neutral alignment and the tibial cut was made. The care was taken to protect the patellar tendon and MCL. Bone was excised along with any meniscal remnants. Posterior osteophytes removed. Posterior release performed. Flexion and extension gaps were little bit tight, so I did take 2 more millimeters off the tibia and they were symmetric at 11 mm. The trials were then inserted. Knee was taken through range of motion and found to be stable. The PCL was intact. The patella was cut, sized, and drilled for a 32 patella. The distal femoral drill holes were made and the tibia keel punch was made. The trial was removed and the bone surfaces were pulse lavaged and packed with a hydrogen peroxide soaked sponge. The cement was mixed and reached proper consistency. It was placed on all implants and on all bone surfaces. Tibia was impacted into position 1st and all overflow was removed. The polyethylene was snapped into position and the femur was impacted in position and again all overflow was removed. The knee was extended and nicely loaded. The patella was clamped and again any remaining overflow was removed. The cement was allowed to harden. Once it hardened sufficiently, knee was flexed and the remaining excess was removed using osteotomes. The knee was pulse lavaged at intervals throughout the procedure. A total of 3 L antibiotic irrigation was used. The periarticular soft tissues and capsules were injected with 100 mL ropivacaine Toradol mixture. A small capsular rent was made superior medially and the introducer for the On-Q pain pump was introduced into this. Blunt dissection was taken up into the adductor canal and using a blunt ended rongeur, the catheter was placed about 6 inches up into the adductor canal. The wound was then closed using #2 Stratafix for the arthrotomy, 0 Stratafix for subcutaneous tissue, and Dermabond mesh for the skin. The RANJITH wound dressing was then placed and the patient was awakened and taken to the recovery room in satisfactory condition. All sponge, needle, and instrument counts were correct. Princess Espitia MD Electronically Signed By: PRINCESS ESPITIA MD 10/09/18 1406 Electronically Signed By: PRINCESS ESPITIA MD 10/13/18 1227 PATIENT NAME: DON PATTERSON DOUG OPERATIVE REPORT DATE OF : 58 REPORT #: [id number] PHYSICIAN: PRINCESS ESPITIA MD PCP: BONNIE HANNA REPORT IS CONFIDENTIAL AND NOT TO BE RELEASED WITHOUT AUTHORIZATION [address] [address] Signed /[facility] /[id number] Copies: ~ Electronically Signed By: PRINCESS ESPITIA MD 10/09/18 1406 Electronically Signed By: PRINCESS ESPITIA MD 10/13/18 1226 PATIENT NAME: DON PATTERSON OPERATIVE REPORT DATE OF : 58 REPORT #: [id number] PHYSICIAN: PRINCESS ESPITIA MD PCP: BONNIE HANNA REPORT IS CONFIDENTIAL AND NOT TO BE RELEASED WITHOUT AUTHORIZATION
--- NOTE | 2018-10-12 10:44 | NUR ---
PT PREPPING FOR DC. PHAR IN, BEATA CARRINGTON GOING OVER DC ORDERS, PT EXCITED. I EXTENDED A BLESSING, WILL FOLLOW NEEDED
--- NOTE | 2018-10-12 11:19 | NUR ---
patients blood sugar 133 currently no insulin required. patient vitals taken and oxycodone given po
--- NOTE | 2018-10-12 13:09 | NUR ---
FAXED CHART NOTES INCLUDING FACE SHEET, ORDER, H AND P, OP NOTE, CONSULT, PROG NOTE, PT AND OT EVAL AND NOTES TO [facility] OP PT. RECIEVED FAX CONFIRMATION. CALLED AND CONFIRMED WITH [facility] OP PT THAT THEY RECIEVED THE FAX, STATED THEY DID.
--- NOTE | 2018-10-13 12:26 | OR ---
[facility] [address], [place] [address] Signed DATE OF OPERATION: SURGEON: Princess Espitia MD PREOPERATIVE DIAGNOSIS: Right knee degenerative joint disease. DISCHARGE DIAGNOSIS: Right knee degenerative joint disease. PROCEDURE PERFORMED: Right total knee arthroplasty. BRIEF HISTORY: Don is a 58-year-old gentleman with severe osteoarthritis. Undergone prior left knee replacement with good results and wish to proceed with the right. After clearance by his PCP, he was taken to the operating room. After adequate anesthesia, he underwent the above-named procedure. He tolerated this well, was taken to the recovery room and subsequently to the orthopedic floor. Initially, his pain control is okay, however, after the block wore off, he did have fairly significant pain. His oxycodone was increased to 5-15 mg q.3 hours p.r.n. and this managed his pain okay. It was in addition to gabapentin and Celebrex. He was seen by Physical Therapy, and was able to eventually ambulate up and down the hallway and up and down the stairs by the day of discharge. He will continue with outpatient physical therapy on his return to home. He will be continued on the current medications. He was kept on DVT prophylaxis of SCDs, TEDs, and Xarelto 10 mg daily. He will be discharged on aspirin 325 b.i.d. He will follow up with me on Tuesday for dressing change. Princess Espitia MD BA/[facility] /[id number] Copies: Portions of this report were created using voice recognition software. There may be inadvertent computer error. Please read with context in mind. If there are any questions, please contact me. Electronically Signed By: PRINCESS ESPITIA MD 10/13/18 1226 PATIENT NAME: DON PATTERSON OPERATIVE REPORT DATE OF : 58 REPORT #: [id number] PHYSICIAN: PRINCESS ESPITIA MD PCP: BONNIE HANNA REPORT IS CONFIDENTIAL AND NOT TO BE RELEASED WITHOUT AUTHORIZATION [address] [address] Signed ~ Portions of this report were created using voice recognition software. There may be inadvertent computer error. Please read with context in mind. If there are any questions, please contact me. Electronically Signed By: PRINCESS ESPITIA MD 10/13/18 1226 PATIENT NAME: DON PATTERSON OPERATIVE REPORT DATE OF : 58 REPORT #: [id number] PHYSICIAN: PRINCESS ESPITIA MD PCP: BONNIE HANNA REPORT IS CONFIDENTIAL AND NOT TO BE RELEASED WITHOUT AUTHORIZATION
== END 2018-10-12 11:30 | disposition home or self-care (01) | DRG 470 ==
LOC: DSVR 10-09 07:00 → MS 10-09 07:00
PROVIDERS: ADMIT Specialist
PROC: 8E0YXBZ Computer Assisted Procedure of Lower Extremity (ICD-10-PCS; 2018-10-09)
PROC: 3E0T3BZ Introduction of Anesthetic Agent into Peripheral Nerves and Plexi, Percutaneous Approach (ICD-10-PCS; 2018-10-09)
PROC: 3E0T33Z Introduction of Anti-inflammatory into Peripheral Nerves and Plexi, Percutaneous Approach (ICD-10-PCS; 2018-10-09)
PROC: 5A09357 Assistance with Respiratory Ventilation, Less than 24 Consecutive Hours, Continuous Positive Airway Pressure (ICD-10-PCS; 2018-10-09)
PROC: 0SRC0J9 Replacement of Right Knee Joint with Synthetic Substitute, Cemented, Open Approach (ICD-10-PCS; principal; 2018-10-09 08:45)
DX: M17.11 Unilateral primary osteoarthritis, right knee (principal); Z68.42 Body mass index [BMI] 45.0-49.9, adult; G89.18 Other acute postprocedural pain; E11.42 Type 2 diabetes mellitus with diabetic polyneuropathy; E66.01 Morbid (severe) obesity due to excess calories; E78.5 Hyperlipidemia, unspecified; E03.9 Hypothyroidism, unspecified; I11.0 Hypertensive heart disease with heart failure; I50.9 Heart failure, unspecified; I25.10 Atherosclerotic heart disease of native coronary artery without angina pectoris; G47.33 Obstructive sleep apnea (adult) (pediatric); M94.261 Chondromalacia, right knee; Z96.652 Presence of left artificial knee joint; Z88.8 Allergy status to other drugs, medicaments and biological substances; Z79.82 Long term (current) use of aspirin; Z79.4 Long term (current) use of insulin; Z79.891 Long term (current) use of opiate analgesic; Z79.51 Long term (current) use of inhaled steroids; Z79.899 Other long term (current) drug therapy; Z98.61 Coronary angioplasty status
CPT/HCPCS: 01402; 36415; 64447; 64450; 76942; 80048; 85025; 94660; 94762; 97110; 97116; 97161; 97165; 97530; C1713; C1776; J0131; J0690; J1100; J1815; J2250; J2704; J2795; J3010; J7120

== ENCOUNTER 2020-10-07 12:55 | Emergency (ER) | payer MEDICARE, OTHER ==
[~2020-10-07] VITALS: Ht 170.2 cm; Wt 137.0 kg
[~2020-10-07 12:55] MED LIST changes: +ASPIRIN EC325 MG PO; +BASAGLAR K100 UNIT/1 SUB-Q; +HEALTHYLAX17 GM PO; +MAPAP500 M1 PO; +NORCO 10-325 T1 EACH PO; +NOVOLOG FL100 UNIT/1 SUB-Q; +SENNA LAX8.6 MG PO
--- OUTSIDE RECORDS SUMMARY | 2020-10-07 12:58 | XMS ---
PreManage Notification: WILL PATTERSON Security Medicare Nurse Events No recent Security Events currently on file CRITERIA MET - ISABELP CARE PROVIDERS BONNIE HANNA [facility] 10/10/2018-Current PHONE: [phone] Amanda Valdez Cast Associate/Assistant Family Teacher 09/29/2020-Current PHONE: [phone] Josh has no Care Guidelines for this patient. [place] VISIT COUNT (12 MO.) 1 JA Morales TOTAL 1 NOTE: Visits indicate total known visits. ED/UCC VISIT TRACKING (12 MO.) 10/07/2020 12:[address] [facility] [place] TYPE: Emergency COMPLAINT: - FELL OUT OF BED INJURED BACK INPATIENT VISIT TRACKING (12 MO.) No inpatient visits to display in this time frame [email or web address]
== END 2020-10-07 16:24 | disposition home or self-care (01) ==
LOC: ED 12:55
DX: S70.02XA Contusion of left hip, initial encounter (principal); W06.XXXA Fall from bed, initial encounter; I11.0 Hypertensive heart disease with heart failure; I50.9 Heart failure, unspecified; E11.40 Type 2 diabetes mellitus with diabetic neuropathy, unspecified; Z88.1 Allergy status to other antibiotic agents; Z79.899 Other long term (current) drug therapy; Z79.82 Long term (current) use of aspirin; Z79.4 Long term (current) use of insulin
CPT/HCPCS: 72192; 73502; 99284-25

== ENCOUNTER 2021-04-22 19:43 | Inpatient (IN) | payer MEDICARE, OTHER ==
[~2021-04-22] VITALS: Ht 170.2 cm; Wt 134.8 kg
--- OUTSIDE RECORDS SUMMARY | 2021-04-22 19:46 | XMS ---
PreManage Notification: WILL PATTERSON Security Supervisor In Circuit Testing Events No recent Security Events currently on file CRITERIA MET - ISABELP CARE PROVIDERS BONNIE HANNA [facility] 10/10/2018-Current PHONE: [phone] Amanda Valdez Sales Market Leader/Block Engraver 03/29/2021-Current PHONE: [phone] Josh has no Care Guidelines for this patient. [place] VISIT COUNT (12 MO.) 2 JA Morales TOTAL 2 NOTE: Visits indicate total known visits. ED/UCC VISIT TRACKING (12 MO.) 04/22/2021 19:43 [facility] TYPE: Emergency COMPLAINT: - CHEST TIGHTNESS, DIFFICULTY BREATHING 10/07/2020 12:56 [facility] TYPE: Emergency COMPLAINT: - FELL OUT OF BED INJURED BACK DIAGNOSES: - Other prison (current) drug therapy - Type 2 diabetes mellitus with diabetic neuropathy, unspecified - Contusion of left hip, initial encounter - Fall from bed, initial encounter - nursing home (current) use of insulin - nursing home (current) use of aspirin - Allergy status to other antibiotic agents - Heart failure, unspecified - Hypertensive heart disease with heart failure - Pain in left hip INPATIENT VISIT TRACKING (12 MO.) No inpatient visits to display in this time frame [id number]
--- NOTE | 2021-04-23 00:39 | NUR ---
PATIENT ASSESMENT COMPLETED. ADMISSION COMPLETED BY MICHA GAFFNEY. PATIENTS MEDICATIONS GIVEN PER ORDER. PATIENT TITRATED DWON TO 3L VIA NC. PATIENT DENIES ANY SOB. PATIENT DENIES ANY NEEDS. CALL LIGHT IN REACH.
--- NOTE | 2021-04-23 01:20 | NUR ---
PATIENT PROVIDED WITH WARM WASH CLOTH. PATIENT DENIES ANY FURTHER NEEDS. CALL LIGHT IN REACH.
--- NOTE | 2021-04-23 03:01 | NUR ---
PATIENT ASSISTED TO CHANGE GOWN AND BEDDING. PATIENT HAD PERSPIRED AND SOAK GOWN AND BEDDING. PATIENTS TEMP 99.2. FRESH ICE WATER PROVIDED. NO FURTHER NEEDS NOTED. CALL LIGHT IN REACH.
--- NOTE | 2021-04-23 03:24 | NUR ---
PATIENT ASSISTED TO THE BSC. PATIENT WAS ABLE TO TRANSFER WITHOUT ASSISTANCE. PATIENT WAS ABLE TO VOID. PATIENT IS BACK IN BED RESTING. PATIENT IS BACK IN BED RESTING. PATIENT CONSTANTLY MOANS. WHEN ASKED ABOUT PAIN, PATIENT STATES "IT HURTS". PATIENT DENIES THE NEED FOR ANY MEDICATION. PATIENT PROVIDED WITH WARM BLANKET NO FURTHER NEEDS NOTED. CALL LIGHT IN REACH.
--- NOTE | 2021-04-23 04:59 | NUR ---
PATIENTS BLOOD DRAWN AND SENT TO LAB. VITALS TAKEN AND RECORDED. INTAKE AND OUPUT RECORDED. URINAL EMPTIED. PATIENT DENIES ANY SOB. PATIENT TITRATED DOWN TO 2L VIA NC. PATIENTS IV INFUSING PER ORDER. PATIENT DENIES ANY FURTHER NEEDS NOTED. CALL LIGHT IN REACH.
--- NOTE | 2021-04-23 07:14 | NUR ---
REPORT RECEIVED FROM GULSHAN GOMES. PT RESTING IN BED ON LEFT WITH HEAD OF BED ELEVATED. PT OTLERATING 2L O2 BY NC WITH O2 SATURATIONS ABOVE 90%, 94% AT THIS TIME. PT DENIES REQUESTS OR COMPLAINTS. CALL LIGHT WITHIN REACH. BED RAILS UP.
[2021-04-23] MEDS ORDERED: FUROSEMIDE40 MG PO (08:12)
[2021-04-23] MEDS ORDERED: TRULICITY1.5 MG/0.5 SUB-Q (08:15)
[2021-04-23] MEDS ORDERED: HYDROCODON-ACE1 EAC8 PO (08:19)
[2021-04-23] MEDS ORDERED: TIZANIDINE HCL2 MG PO (08:19)
[2021-04-23] MEDS ORDERED: PANTOPRAZOLE SO40 MG PO (08:20)
--- NOTE | 2021-04-23 08:44 | NUR ---
MORNING ASSESSMENT AND MEDICATION DUE. PT RESTING IN BED. AWAKE AND ALERT. PT REPORTS 8 BACK PAIN WITH A BASELINE OF 7. SEE MAR FOR MEDICATION GIVEN. PT REPORTS "I FEEL REALLY GOOD ACTUALLY." PT STATES HE WOULD LIKE TO GO HOME ON OXGYEN SOON POSSIBLE. LUNG SOUNDS CLEAR BUT DEMINISHED THROUGHOUT. I.S. USE DEMONSTRATED X5 PT REACHING 1000ML. OXGYEN SATURATIONS 92% ON 2L O2 BY NC WHILE RESTING IN BED. PT UP TO AMBUATE IN ROOM, O2 SATRAUTIOSN DROP TO 85%, O2 INCREASED T0 6L O2 BY NC TO MAINTAIN OXYGEN SATURATIONS ABOVE 90% WITH ACTIVITY. PT UP TO CHAIR FOR BREAKFAST. O2 WEANED TO 4L O2 BY NC WITH OXGYEN SATURATIOSN ABOVE 90%. PT DENIES ADDITIONAL REQUESTS OR COMPLAINTS. PT REMAINS UP TO CHAIR. CALL LIGHT WITHIN REACH.
--- NOTE | 2021-04-23 10:21 | NUR ---
THIS RN TO ROOM TO CHECK ON PT. PT MRAINTING OXYGEN SATRUTAIONS AT 95% ON 4L O2 BY NC. PT UP TO SHOWER. MATINAINS OXGYEN SATURATIONS ABOVE 90% WHILE SHOWERING WITH 4L O2 BY NC. LINENS CHANGED. PT INDEPENTANT IN SHOWER. CALL LIGHT WITHIN REACH.
--- NOTE | 2021-04-23 11:15 | NUR ---
STILL NO RESPONSE REGARDING ABX. SPOKE WITH MD FACE TO FACE AND STATES TO GIVEN ABX AT THIS TIME FOR PROPHLACTIC COVERAGE. STATES OK THAT ABX IS LATE. NO ADDITIONAL NEW ORDERS.
--- NOTE | 2021-04-23 11:45 | NUR ---
THIS RN TO ROOM TO CHECK ON PT, MEDICAITONS DUE. PT RESTING IN BED ON RIGHT SIDE. OXGYEN SATURATION 97% ON 2L O2 BY NC. LUNCH ORDER PLACED. MEDICAITONS GIVEN. RT WILLOW TO BEDSIDE FOR BREATHING TREATMENT. PT DENIES ADDITIONAL REQUESTS OR COMPLAINTS. CALL LIGHT WITHIN REACH.
--- NOTE | 2021-04-23 12:22 | NUR ---
NEW ORDERS RECEIVED BY GULSHAN SUTTON. PT CONTINUES TO REPORT 9/10 PAIN IN BACK. PT UP TO CHAIR TO EAT LUNCH. INSULIN GIVEN. PT DENIES ADDITONAL REQUESTS OR COMPLAINTS. CALL LIGHT WITHIN REACH. OXYGEN SATURATION 96% ON 2L AT REST.
--- NOTE | 2021-04-23 13:04 | NUR ---
LUNCH DELIVERED TO PT. STAND BY ASSIST UP TO CHAIR. PT WEANED TO ROOM AIR. UNABLE TO TOLEARTE WITH ACTIVITY, OXGYEN SATURATIONS DROP TO 85%. PT PLACED BACK ON 2L O2 BY NC FOR TIME UP TO CHAIR AND WITH AMBULATION IN ROOM. INSULIN GIVEN. PRONING EDUCATION DONE. PT AGREES TO TRY PRONING AFTER LUNCH. PT DENIES ADDITIONAL REQUESTS OR COMPLAINTS. CALL LIGHT WITHIN REACH.
--- NOTE | 2021-04-23 14:51 | NUR ---
AFTERNOON ASSESSMENT AND MEDICAITONS DUE. PT RESTING IN BED ON RIGHT SIDE. PT REPORTS BACK PAIN HAS IMPROVED, NOW 6/10 AND TOELRATBLE, PT DENIES NEED FOR ADDITIONAL PAIN MEDICATION. PT DENIES NAUSEA. LUNG SOUND CLEAR IN UPPER LOBES, DEMINISHED IN BASES. PT DEMONSTRATES USE OF I.S. REACHING 1100ML X5. PT REPORTS INCREASED COUGH WITH I.S. AND REQUESTS MEDICATION, SEE MAR FOR MEDICATION GIVEN. PT REMAINS ON 2L O2 BY NC AT THIS TIME WITH OXGYEN SATURATIONS IN THE MID 90'S. PTS HOME CPAP ARRIVED. PT ASSISTED WITH SETTING UP CPAP. PT REMAINS STEADY ON FEET, NO ASSTANCE NEEDED WHEN IN ROOM. MEDICATIONS GIVEN. PTS HOME CPAP ARRIVED. WILLOW, RT TO ROOM TO SET UP CPAP AND GIVEN BREATHING TX. 2L O2 BY NC BLED INTO CPAP. PT RESTING ON RIGHT SIDE. PT ENCOURAGED TO PRONE, DECLINES AT THIS TIME STATING "MABYE AFTER I TAKE A NAP." DINNER ORDER PLACED. NO ADDITIONAL REQUESTS OR COMPLAINTS. CALL LIGHT WITHIN REACH. BED RAILS UP.
--- NOTE | 2021-04-23 16:10 | NUR ---
THIS RN TO ROOM TO CHECK ON PT. PT UP IN ROOM, 2L O2 BY NC IN PLACE. PTS OXYGEN SATURATION 95% ON 2L O2 BY NC. 20 MINUTE DISCUSSION HELD WITH PT REGARDING PLAN OF CARE, OXGYEN USE, PRONING, AND I.S. USE. PT REPORTS ALL HIS QUESTIONS HAVE BEEN ANSWERED. PTS KAMAR CALLED WITH UPDATE. KAMAR VERBALIZES UNDERSTANDING OF PLAN OF CARE AND STATES HER QUESTIONS HAVE BEEN ANSWERED.
--- NOTE | 2021-04-23 17:29 | NUR ---
DINNER DELIVERED TO PT. BLOOD SUGAR NOTED TO BE ELEVATED ABOVE NORMAL LIMITS. MD NOTIFIED. NO NEW ORDERS AT THIS TIME. MEDICATIONS, INCLUDING SLIDING SCALE INSULIN, GIVEN. O2 REMAINS AT 94% ON 2L O2 BY NC. STAND BY ASSIST UP TO CHAIR FOR DINNER. PT REPORTS 7/10 PAIN IN BACK, SEE MAR FOR MEDICATION GIVEN. IV ASSESED, DRESSING LOOSE. DRESSING CHAGNED PER PROTOCOL, SKIN PREP APPLIED, IV FLUSHES WELL, NO S/S/ OF PHLEBITIS NOTED. PT EATING DINNER. FAN PROVIDED PER PT REQUEST. NO ADDITIONAL REQUESTS OR COMPLAINTS. CALL LIGHT WITHIN REACH.
--- NOTE | 2021-04-23 18:04 | NUR ---
PUMP ALARMING, INFUSION AND FLUSH COMPLETE. IV ASSESSED, WNL, FLUSHED AND SALINE LOCKED PER PROTOCOL. ALCOHOL CAP APPLIED. PT FINISHED WITH DINNER, AT 100%. 2 REMAINS ABOVE 90% ON 2L O2 BY NC. NO ADDITIONAL REQUESTS OR COMPLAINTS. CALL LIGHT WITHIN REACH.
--- NOTE | 2021-04-23 18:55 | NUR ---
PT HERE FOR COVID RELATED PNEUMONIA. PT UP WITH STAND BY ASSIST TO CHAIR FOR MEALS AND INDEPENDANT WITH SHOWER. PT TOELRATING REGULAR DIET WITH GOOD APPITITE, SUGAR FREE SNACKS PROVIDED. PTS HOME PAIN MEDICAITON ADDED TO EMAR AND GIVEN FOR 6-9/10 BACK PAIN. PT REMAINS ON 2L O2 BY NC WITH ACTIVITIES WIT OXYGEN SATURATIONS ABOVE 90%. PT AFBRIAL THIS SHIFT. BLOOD SUGARS VERY ELEVATED, INSULIN LEVELS ADJUSTED ACCORDINGLY. PT USING CPAP FROM HOME WHEN RESTING WITH 2L O2 BLED IN. PT VOIDING QUANTITY SUFFICIENT. PT USES CALL LIGHT AND MAKES NEEDS KNOWN.
--- NOTE | 2021-04-23 19:00 | NUR ---
PT STATES HE "NORMALLY TAKE 15 UNITS OF HUMALOG STUFF WITH ALL MY MEALS." MD UPDATED AND STATES TO ADD THIS TO PTS EMAR ORDER. ORDER ENTERED.
--- NOTE | 2021-04-23 19:18 | EKG ---
[facility] [address] [facility] [place], [place] [address] Signed Normal sinus rhythm Left axis deviation Abnormal ECG When compared with ECG of 26-SEP-2018 15:36, No significant change was found Confirmed by JACK SMITH DO ([id number]) on 04/23/2021 7:18:06 PM Electronically Signed By: JACK SMITH DO 04/23/211917 PATIENT NAME: PATTERSONWILL Electrocardiogram DATE OF : 58 PHYSICIAN: JACK SMITH DO REPORT #: [id number] REPORT IS CONFIDENTIAL AND NOT TO BE RELEASED WITHOUT AUTHORIZATION
--- NOTE | 2021-04-23 21:35 | NUR ---
PLACED CALL TO MD PATIENTS BS WAS ELEVATED. NEW ORDER RECIEVED. VERIFIED ORDER USING THE READBACK METHOD.
--- NOTE | 2021-04-23 21:36 | NUR ---
on 2lnc, lungs craclesd r side, no9 sob with exertion,m sitting edge of bed. started 1L LR bolus tele# 3/cpox in place, cbg 502 received 40 units semglee and 12 units humolog, voiding qs yellow urine. trace ederma l ankles
--- NOTE | 2021-04-23 21:39 | NUR ---
medicateds with norcxo per back pain and tessalon perles per cough
--- NOTE | 2021-04-24 01:50 | NUR ---
resting, eys closed, using cpap with O2 bleeding in. tele cpox in place. lungs w crackles, dim at bases. repeat cbg 459, denies s/sx hyperglycemia, will reacheck again in 2-3hrs, will notify , pt repositions self, encouraged to do proning positioning, stated understanding
--- NOTE | 2021-04-24 05:49 | NUR ---
On 2LNC, telecpox#[address], sats 85-97 w O@ 2L- home CPAP/w 2L bleeding O2. Lungs with fine crackles and dim at bases. no sob stated or noted, . has slept off and on, received 1L LR bolus, tolerated well, sl patent. tolerating diet well, on regular diet, no emesis. CBG were [address] Lazaro was notified. new order to give 40 units semglee instead of scheduled 26 untits. received 12 units ss humalog insulin, asymptomatic cbg rechecked at 0130 and cbg was 459, labs drawn and glucose as per lab is still 459. aware of earlier cbg results and will assess in am. pt alert and coop. voiding QS, and tolerating liquids well, no emesis. receiving neb tx at his requests at this time. pt encouraged to do proning positions which he does, written pamphlet inroom
--- NOTE | 2021-04-24 07:29 | NUR ---
DR SMITH NOTIFIED OF THIS AM GLUCOSE LAB OF 454. NO NEW ORDERS "OH OK THANK YOU, WILL REVIEW WHEN I GET THERE" PT ASYMPTOMATIC, AWAKE, WATCHING TV, O2 2LNC. TOLERATING LIQUIDS
--- NOTE | 2021-04-24 08:02 | NUR ---
MORNING ASSESSMENT AND MEDICATION DUE. THIS RN ASSISTING PTS PRIMARY RN WITH MORNING CARES AND ASSESSMENT. PT SITTING UP ON EDGE OF BED. PT REPORTS HIS NIGHT WAS "NOT VERY GOOD." PT REPORTS NOISES OF CARES (IV PUMP ALARMING) KEPT HIM AWAKE. PT CHEERFUL AND STATES "THATS JUST HOW IT IS IN THE HOSTIPAL." PT REPORTS 5/10 BACK PAIN THIS MORNING AND DENIES NEED FOR PAIN MEDICAITON AT THIS TIME. PT REPORTS BASELINE NEUROPATHY AND BASELINE STRENGTH STATING "I DON'T REALLY FEEL WEAT AT ALL." LUNG SOUNDS CLEAR WITH MORE AIR MOVEMENT HEARD THIS MORNING. PT REMAINS ON 2L O2 BY MS WITH REST AND ACTIVITIES AND IS MAINTAINING OXGYEN SATURATIONS ABOVE 90%. I.S. USE DEMONSTRATED REACHING 1250 X5. COUGH INCREASES WITH I.S. USE, SEE MAR FOR COUGH MEDICATION GIVEN. PT REPORTS DRY COUGH, NO SPUTUM AT THIS TIME. MILD EDEMA CONTINUES IN BILATERAL LOWER EXTREMTIES. LINENS CHANGED. STAND BY ASSIST UP TO CHAIR TO EAT BREAKFAST. PT TOLERATES ACTIVITY WHILE STILL ON 2L O2 BY MS. BLOOD SUGARS REMAIN HIGH. BLOOD PRESSURE ALSO ELEVATED, MORNING BLOOD PRESSURE MEDICAITONS GIVEN. NOTIFIED. INSULIN GIVEN. PT DENIES ADDITIONAL REQUESTS OR COMPLAINTS. CALL LIGHT WITHIN REACH.
--- NOTE | 2021-04-24 08:58 | NUR ---
NEW INSULIN ORDERS IN PLACE. CLARIFIED WITH DR. SMITH. DR. SMITH STATES TO GIVEN THE ADDITIONAL 20 UNITS OF LANTUS THIS MORNING AND HOLD THE 50 UNITS UNTIL TONIGHT. ADDITONAL 20 UNITS OF LANTUS GIVEN. PT UP TO SHOWER WITH STAND BY ASSIST, INDEPENDANT IN SHOWER. OXYGEN SATURATIONS REMAIN ABOVE 90% ON 2L O2 BY NC EVEN WITH ACTIVITY. PT ABLE TO EAT 100% OF BREAKFAST, REPORTS GOOD APPITTIE WITH NO LOSS OF TASTE OR SMELL. NO ADDITIONAL REQUESTS OR COMPLAINTS. CALL LIGHT MATEO GARDINER. PTS PRIMARY RN, THA, UPDATED.
--- NOTE | 2021-04-24 09:34 | NUR ---
PT FINISHED WITH SHOWER. UP TO CHAIR INDEPENDANTLY. OXGYEN SATURATIONS REMAINS ABOVE 90% ON 2L O2 BY NC. PT DENIES ADDITIONAL REQUESTS OR COMPLAINTS AT THIS TIME. CALL LIGHT WITHIN REACH.
[2021-04-24] MEDS ORDERED: ADULT ASPIRIN R81 MG PO (09:37)
[2021-04-24] MEDS ORDERED: MIRALAX119 GM PO (09:40)
[2021-04-24] MEDS ORDERED: ADVAIR 500-501 EACH INH (09:43)
[2021-04-24] MEDS ORDERED: VENTOLIN HFA18 GM INH (09:44)
[2021-04-24] MEDS ORDERED: HYDROXYZINE HCL25 MG PO (09:47)
--- NOTE | 2021-04-24 09:48 | NUR ---
MED REC COMPLETE
--- NOTE | 2021-04-24 11:00 | NUR ---
PRN BLOOD SUGAR DONE AT 1030. IT WAS 400. WAITING ON HOME O2 APPROVAL FOR D/C.
--- NOTE | 2021-04-24 12:02 | NUR ---
SPOKE WITH PATIENT THIS MORNING VIA PHONE IN ROOM. HE LIVES WITH . HE DOES NOT USE DME OTHER THAN CPAP BUT HAS CANE AND WALKER FROM PAST USE. WILL PICK HIM UP AT DISCHARGE. HE AND SHE UNDERSTAND QUARANTINE. HE HAD VACCINE. HAS A CAREGIVER WHO COMES IN 2 HOURS A DAY NORMALLY AND CAN DELIVER FOOD OR ANY NEEDS. IS NOT WORRIED ABOUT FINANCIAL FOR MEDS/FOOD/UTILITIES. ENCOURAGED TO ASK ANY QUESTIONS OF STAFF. 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
--- NOTE | 2021-04-24 12:06 | NUR ---
OXYGEN QUALIFIER/RX/CLINICALS FAXED TO [facility] WITH CONFIRMATION AT 1140AM.
[2021-04-24] MEDS ORDERED: DEXAMETHASONE6 MG PO (12:31)
[2021-04-24] MEDS ORDERED: INSULIN AS100 UNIT/2 SUB-Q (12:34)
--- NOTE | 2021-04-24 12:43 | NUR ---
PT RECEIVED 27 UNITS OF HUMALOG WITH LUNCH. PT IS DOING WELL AND IS READY RO D/C/ AFTER EATING LUNCH.
[2021-04-24] MEDS ORDERED: HYDROCODON-ACE1 EAC8 PO (13:39)
--- NOTE | 2021-04-24 13:50 | NUR ---
CONFIRMED ADDRESS PATIENT WILL BE GOING TO. HE STATES HE WILL NOT BE AT HIS HOME ADDRESS, IT WILL BE [address]. THIS ADDRESS WAS GIVEN TO [facility] FOR DELIVERY.
== END 2021-04-24 13:55 | disposition home or self-care (01) | DRG 177 ==
LOC: ED 19:43 → MS 22:00
PROVIDERS: ADMIT Student in an Organized Health Care Education/Training Program; ATTEND Student in an Organized Health Care Education/Training Program
PROC: XW033E5 Introduction of Remdesivir Anti-infective into Peripheral Vein, Percutaneous Approach, New Technology Group 5 (ICD-10-PCS; 2021-04-22)
PROC: 3E0DX3Z Introduction of Anti-inflammatory into Mouth and Pharynx, External Approach (ICD-10-PCS; principal; 2021-04-23)
DX: U07.1 COVID-19 (principal); J12.82 Pneumonia due to coronavirus disease 2019; J96.01 Acute respiratory failure with hypoxia; Z66 Do not resuscitate; E11.65 Type 2 diabetes mellitus with hyperglycemia; T38.0X5A Adverse effect of glucocorticoids and synthetic analogues, initial encounter; I11.0 Hypertensive heart disease with heart failure; E03.9 Hypothyroidism, unspecified; J45.909 Unspecified asthma, uncomplicated; I50.9 Heart failure, unspecified; M19.90 Unspecified osteoarthritis, unspecified site; E11.40 Type 2 diabetes mellitus with diabetic neuropathy, unspecified; G89.4 Chronic pain syndrome; Z88.8 Allergy status to other drugs, medicaments and biological substances; Z79.82 Long term (current) use of aspirin; Z79.899 Other long term (current) drug therapy; Z98.890 Other specified postprocedural states; Z79.4 Long term (current) use of insulin
CPT/HCPCS: 71045; 80053; 83605; 83735; 84484; 85025; 87040; 93005; 93010; 94640; 94760; 94761; A9270; J1100; J1170; J1650; J1815; J3475; J7050; J7121

== ENCOUNTER 2021-06-30 07:22 | Day surgery (SDC) | payer MEDICARE, OTHER ==
[~2021-06-30] VITALS: Ht 170.2 cm; Wt 130.0 kg
[~2021-06-30 07:22] MED LIST changes: +ACTOS15 MG PO; +ADULT ASPIRIN R81 MG PO; +ADVAIR 500-501 EACH INH; +BASAGLAR K100 UNIT/1 SQ; +DEXAMETHASONE6 MG PO; +DIOVAN320 MG PO; +FUROSEMIDE40 MG PO; +HUMALOG KW200 UNIT/1 SQ; +HYDROXYZINE HCL25 MG PO; +INDAPAMIDE2.5 MG PO; +INSULIN AS100 UNIT/2 SUB-Q; +LOSARTAN POTAS100 MG PO; +MIRALAX119 GM PO; +PANTOPRAZOLE SO40 MG PO; +TIZANIDINE HCL2 MG PO; +TRULICITY1.5 MG/0.5 SQ; +TRULICITY1.5 MG/0.5 SUB-Q; +VENTOLIN HFA18 GM INH
--- NOTE | 2021-06-30 09:25 | NUR ---
06/30/21 0925 Shanti Francisco 0975 PATIENT ARRIVES TO PACU AWAKE, BUT DROWSY. DENIES PAIN OR NAUSEA. RESP EVEN AND UNLABORED, MASK AT 6 LITERS, SATS 100%. OXYGEN TURNED OFF.
--- NOTE | 2021-06-30 10:55 | NUR ---
PT ALERT, ORIENTED AND A FAMILY MEMBER WILL PICKUP FOLLOWING DC. PT HERE FOR SCOPE, PREPARING FOR GASTRIC SLEEVE SURGERY. GAVE ENCOURAGEMENT WILL FOLLOW NEEDED
--- NOTE | 2021-06-30 14:44 | OR ---
[facility] [address] [place], [place] [address] Signed DATE OF OPERATION: 06/30/2021 SURGEON: Patricia Seymour MD PREOPERATIVE DIAGNOSIS: History of polyps in 2013. POSTOPERATIVE DIAGNOSIS: Polyps x3 (all small). PROCEDURE: Total colonoscopy to cecum with cold morcellation polypectomy x5. ANESTHESIA: Intravenous sedation, propofol infusion, Keyla Tejeda CRNA HISTORY: This 60-year-old white man is a patient of Dr. Dominguez. Notably, he had significant COVID disease requiring Intensive Care Unit Management 89 days ago, recovered fully from that. He was treated with antibiotic therapy and has had vaccination as well. He is symptom free in that regard. He does have underlying pulmonary disease anyway as well as multiple comorbidities including obesity and so on. He did undergo colonoscopy by me in 2013, at which time he was found to have five polyps at least one in the cecum and one in the transverse colon. He has no symptoms of bleeding, diarrhea, or constipation at this time. He is admitted to undergo colonoscopy for surveillance, understands the risks of bleeding, infection, perforation. FINDINGS: The prep was good. Colonoscopy was undertaken to the cecum without question. He had a cluster of three small polyps in the proximal ascending colon, all excised with cold morcellation technique and two smaller polyps, one hyperplastic, the other likely adenomatous in the area of the sigmoid. These were excised as well. The remaining colon was normal, though he did have a few scattered diverticula. DESCRIPTION OF PROCEDURE: The patient was brought to the surgical endoscopy suite and placed in lateral decubitus position given intravenous sedation to the point of slurred speech and nystagmus. Digital rectal examination was normal. An Olympus video colonoscope was passed in the rectum and manipulated throughout the Electronically Signed By: PATRICIA SEYMOUR MD 06/30/21 1444 PATIENT NAME: WILL PATTERSON OPERATIVE REPORT DATE OF : 58 REPORT #: [id number] PHYSICIAN: PATRICIA SEYMOUR MD PCP: EUNICE DOMINGUEZ MD REPORT IS CONFIDENTIAL AND NOT TO BE RELEASED WITHOUT AUTHORIZATION [facility] [address] [place], [place] [address] Signed colon. The scope was ultimately advanced to the cecum. The ileocecal valve and appendiceal orifice were normal. Scope was withdrawn from that point. Soon in the proximal ascending colon were 2 as a cluster of three small polyps, possibly adenomatous. These were excised with cold morcellation technique entirely. The scope was further withdrawn and remaining colon was normal until the sigmoid, where two small polyps were noted. These were excised with cold morcellation technique. One of them hyperplastic, the other most likely adenomatous. Retroflexed view in the rectum was found to be normal. Scope was removed. The patient was taken to the recovery room in good condition. CONCLUDING DIAGNOSIS: Small polyps x5; minimal diverticular changes. PLAN: Recommend repeat colonoscopy in 5 years or sooner if clinically indicated. He will return to the ongoing care of Dr. Dominguez. MD DANNY Aguero/ROBBIN /[id number] Copies: ~ Electronically Signed By: PATRICIA SEYMOUR MD 06/30/21 1444 PATIENT NAME: WILL PATTERSON OPERATIVE REPORT DATE OF : 58 REPORT #: [id number] PHYSICIAN: PATRICIA SEYMOUR MD PCP: EUNICE DOMINGUEZ MD REPORT IS CONFIDENTIAL AND NOT TO BE RELEASED WITHOUT AUTHORIZATION
--- NOTE | 2021-06-30 20:03 | EKG ---
[facility] [address] [facility] [place], [place] [address] Signed Normal sinus rhythm Normal ECG When compared with ECG of 22-APR-2021 20:02, No significant change was found Confirmed by NELIDA LOVE MD ([id number]) on 06/30/2021 8:03:05 PM Electronically Signed By: NELIDA LOVE MD 06/30/212002 PATIENT NAME: LEONARDOWILL DOUG Electrocardiogram DATE OF : 58 PHYSICIAN: NELIDA LOVE MD REPORT #: [id number] REPORT IS CONFIDENTIAL AND NOT TO BE RELEASED WITHOUT AUTHORIZATION
--- NOTE | 2021-07-01 12:54 | PATH ---
[facility] [address] [place], [place] [address] Signed SPECIMEN(S): A ASCENDING/RIGHT COLON POLYP X3 SPECIMEN(S): B SIGMOID RECTAL POLYP X2 SPECIMEN SOURCE: A. ASCENDING/RIGHT COLON POLYP X3 B. SIGMOID RECTAL POLYP X2 CLINICAL HISTORY: History of polyps, family history of colon cancer. MICROSCOPIC DESCRIPTION: Histologic sections of all submitted blocks are examined by light microscopy. These findings, together with the gross examination, support the pathologic diagnosis. FINAL PATHOLOGIC DIAGNOSIS: A. Colon, ascending/right, polypectomies: - Tubular adenomas (2 fragments). B. Colon, rectum/sigmoid, polypectomies: - Hyperplastic polyps (2). BRP:cml:C2NR GROSS DESCRIPTION: Two specimens are received in two containers labeled with "KM". A. The specimen, labeled "KM, 1," and designated on the requisition "ascending/right colon polypectomy 3," is received in formalin and consists of seven fragments of pink-orellana tissue (0.1 to 0.2 cm in greatest dimension). The specimen is submitted entirely in cassette A1. B. The specimen, labeled "KM, 2," and designated on the requisition "rectum/sigmoid polypectomy 2," is received in formalin and consists of two fragments of pink-orellana tissue (0.2 cm in greatest dimension). The specimen is submitted entirely in cassette B1. AC (under the direct supervision of a pathologist) The Gross Description was prepared using a voice recognition system. The report was reviewed for accuracy; however, sound-alike word errors, addition and/or deletions may occur. If there is any question about this report, please contact Client Services. PERFORMING LABORATORY: The technical component was performed by [employer], [address] [place] [id number] (Kelp Cutter: Jolanta Hardin MD; CLIA# [id number]). Professional interpretation was performed by PATIENT NAME: WILL PATTERSON PATHOLOGY DATE OF : 58 REPORT #: [id number] PHYSICIAN: [facility] PCP: EUNICE DOMINGUEZ MD REPORT IS CONFIDENTIAL AND NOT TO BE RELEASED WITHOUT AUTHORIZATION [facility] [address] [place], [place] [address] Signed [facility], [facility] branch, [address] [address] (CLIA# [id number]). Diagnostician: Amor Damon MD Pathologist Electronically Signed 07/01/2021 Copies: ~ PATIENT NAME: WILL PATTERSON PATHOLOGY DATE OF : 58 REPORT #: [id number] PHYSICIAN: [facility] PCP: EUNICE DOMINGUEZ MD REPORT IS CONFIDENTIAL AND NOT TO BE RELEASED WITHOUT AUTHORIZATION
== END 2021-06-30 09:50 | disposition home or self-care (01) ==
LOC: DS 07:22 → OPS 07:22 → DS 07:30 → OPS 09:50
PROVIDERS: ATTEND Surgery
PROC: 0DBN8ZX Excision of Sigmoid Colon, Via Natural or Artificial Opening Endoscopic, Diagnostic (ICD-10-PCS; 2021-06-30)
PROC: 0DBK8ZX Excision of Ascending Colon, Via Natural or Artificial Opening Endoscopic, Diagnostic (ICD-10-PCS; principal; 2021-06-30 07:30)
DX: D12.2 Benign neoplasm of ascending colon (principal); K63.5 Polyp of colon; K57.30 Diverticulosis of large intestine without perforation or abscess without bleeding; Z80.0 Family history of malignant neoplasm of digestive organs; J44.9 Chronic obstructive pulmonary disease, unspecified; I50.9 Heart failure, unspecified; E11.9 Type 2 diabetes mellitus without complications; K42.9 Umbilical hernia without obstruction or gangrene; Z86.16 Personal history of COVID-19; E66.01 Morbid (severe) obesity due to excess calories; Z68.42 Body mass index [BMI] 45.0-49.9, adult; Z79.4 Long term (current) use of insulin
CPT/HCPCS: 93005; 93010; J0690; J2001; J2704; J7121

== ENCOUNTER 2022-12-25 15:13 | Emergency (ER) | payer MEDICARE, OTHER ==
[~2022-12-25] VITALS: Ht 170.2 cm; Wt 145.0 kg
--- OUTSIDE RECORDS SUMMARY | 2022-12-25 15:16 | XMS ---
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 Lorin VISIT COUNT (12 MO.) 1 JA Morales TOTAL 1 NOTE: Visits indicate total known visits. ED/UCC VISIT TRACKING (12 MO.) 12/25/2022 15:15 JA Collins [place] TYPE: Emergency COMPLAINT: - BLOOD PREASURE HIGH, URGENT CARE REFERRAL INPATIENT VISIT TRACKING (12 MO.) No inpatient visits to display in this time frame [email or web address]
[2022-12-25 19:01] VITALS: BP 174/93
--- NOTE | 2022-12-26 16:43 | EKG ---
[facility] [address] [facility] [place] [address] Signed Normal sinus rhythm Left axis deviation Incomplete left bundle branch block Abnormal ECG No previous ECGs available Confirmed by BONILLA URBANO MD ([id number]) on 12/26/2022 4:43:07 PM Electronically Signed By: BONILLA URBANO MD 12/26/223 PATIENT NAME: WILL PATTERSON DOUG Electrocardiogram DATE OF : 58 PHYSICIAN: BONILLA URBANO MD REPORT #: [id number] REPORT IS CONFIDENTIAL AND NOT TO BE RELEASED WITHOUT AUTHORIZATION
== END 2022-12-25 19:01 | disposition home or self-care (01) ==
LOC: ED 15:13
DX: R42 Dizziness and giddiness (principal); I11.0 Hypertensive heart disease with heart failure; I50.9 Heart failure, unspecified; E11.9 Type 2 diabetes mellitus without complications; J44.9 Chronic obstructive pulmonary disease, unspecified; E66.01 Morbid (severe) obesity due to excess calories; Z68.43 Body mass index [BMI] 50.0-59.9, adult; Z88.8 Allergy status to other drugs, medicaments and biological substances; Z79.899 Other long term (current) drug therapy; Z79.4 Long term (current) use of insulin; Z79.82 Long term (current) use of aspirin
CPT/HCPCS: 36415; 70450; 71045; 80053; 83880; 84484; 85025; 85379; 93005; 93010

== ENCOUNTER 2025-02-27 18:55 | Emergency (ER) | payer MEDICARE, OTHER ==
[~2025-02-27] VITALS: Ht 170.2 cm; Wt 109.7 kg
[2025-02-27 19:38] LABS: BLOOD/HGB, URINE SMALL (Negative); KETONE, URINE NEGATIVE (Negative); LEUK ESTERASE, URINE NEGATIVE (negative); NITRITE, URINE NEGATIVE (negative)
[2025-02-27 19:47] LABS: BACTERIA, URINE NONE SEEN /hpf (negative); CASTS, URINE NONE SEEN \\lpf; CRYSTALS, URINE NONE SEEN (0-1+); EPITHELIAL CELLS, URINE SQUAMOUS 3+ /lpf (0-1+)
[2025-02-27] MEDS ORDERED: MOUNJARO10 MG/0.5 SQ (19:47)
[2025-02-27 19:48] LABS: REFLEX CULTURE, URINE No (No)
[2025-02-27] MEDS ORDERED: KETOROLAC TROMETHAMINE 15 MG/ML VIAL IV ONE (20:15)
[2025-02-27] MEDS ORDERED: LACTATED RINGER'S 1,000 ML IV ONE (20:15)
[2025-02-27] MEDS ORDERED: ACETAMINOPHEN 500 MG TAB PO ONE (20:15)
[2025-02-27 20:20] LABS: BASOPHILS 0.3 % (0.2-1.2); EOSINOPHILS 0.1 % (0.8-7.0); LYMPHOCYTES 10.9 % (21.8-53.1); MCH 27.8 PG (25.7-32.2); MCHC 33.4 g/dL (32.3-36.5); MCV 83.1 fL (79.0-92.2); MONOCYTES 8.5 % (5.3-12.2); NEUTROPHILS 79.8 % (34.0-67.9); RBC 4.14 M/uL (4.63-6.08)
[2025-02-27 20:30] LABS: ALT (SGPT) 19.0 U/L (14-59); AST (SGOT) 8.0 U/L (15-37); GLOMERULAR FILTRATION RATE,EST 49.0 mL/min (>60); PROTEIN, TOTAL 7.2 g/dL (6.4-8.2); UREA NITROGEN 21.0 mg/dL (7-18)
[2025-02-27 20:45] LABS: AMPHETAMINES, URINE NEGATIVE (NEGATIVE); BARBITURATES, URINE NEGATIVE (NEGATIVE); BENZODIAZEPINE, URINE NEGATIVE (NEGATIVE); CANNABINOID, URINE NEGATIVE (NEGATIVE); COCAINE, URINE NEGATIVE (NEGATIVE); ECSTASY, URINE NEGATIVE (NEGATIVE); FENTANYL, URINE NEGATIVE (NEGATIVE); METHADONE, URINE NEGATIVE (NEGATIVE); OPIATES, URINE POSITIVE (NEGATIVE); OXYCODONE, URINE NEGATIVE (NEGATIVE); PHENCYCLIDINE, URINE NEGATIVE (NEGATIVE)
[2025-02-27 20:55] LABS: LACTIC ACID, BLOOD 0.8 mmol/L (0.4-2.0)
[2025-02-27] MEDS ORDERED: CEPHALEXIN500 M1 PO (22:42)
[2025-02-27 22:54] VITALS: BP 137/59
--- NOTE | 2025-03-01 17:25 | EKG ---
[facility] [address] [facility] [place] [address] Signed Normal sinus rhythm Normal ECG When compared with ECG of 25-DEC-2022 15:23, Incomplete left bundle branch block is no longer present Confirmed by Farhan Lyons MD ([id number]) on 03/01/2025 5:24:59 PM Electronically Signed By: FARHAN LYONS MD 03/01/25 1725 PATIENT NAME: WILL PATTERSON Electrocardiogram DATE OF : 58 PHYSICIAN: FARHAN LYONS MD REPORT #: [id number] REPORT IS CONFIDENTIAL AND NOT TO BE RELEASED WITHOUT AUTHORIZATION
== END 2025-02-27 22:56 | disposition home or self-care (01) ==
LOC: ED 18:55
PROVIDERS: Internal Medicine
DX: N39.0 Urinary tract infection, site not specified (principal); I11.0 Hypertensive heart disease with heart failure; I50.9 Heart failure, unspecified; E11.40 Type 2 diabetes mellitus with diabetic neuropathy, unspecified; J44.9 Chronic obstructive pulmonary disease, unspecified; Z79.82 Long term (current) use of aspirin; Z79.51 Long term (current) use of inhaled steroids; Z79.899 Other long term (current) drug therapy; Z79.84 Long term (current) use of oral hypoglycemic drugs; Z88.8 Allergy status to other drugs, medicaments and biological substances
CPT/HCPCS: 36415; 71045; 74176; 80053; 80307; 81001; 83605; 85025; 87088; 93005; 93010; 96365; 96375; 99284-25; A9270; J0696; J1885; J7121